=== PATIENT | female | born 1965 | race African-American/Black ===

== ENCOUNTER 2021-04-05 17:08 | Emergency (ER) | payer OTHER ==
[~2021-04-05] VITALS: Ht 157.5 cm; Wt 91.2 kg
--- NOTE | ~2021-04-05 | EMS ---
[address] [address] EMS Patient Care Report Name: JESSICA CASTELLANO Room #: DEP CHANG Baird#: [id number] Admission: 04/05/21 Attend Phys: Discharge: 04/05/21 Date of : 67 Report #: [id number] THIS REPORT FOR: //name// Report Transmitted: 04/06/2021 13:06 EMS Care Summary [place], [place]/[facility] Incident [id number] @ 04/05/2021 16:43 Incident Location [address], [place] [address] Patient JESSICA CASTELLANO Female, 55 Years 1965 Patient Address Patient History Anxiety, Chief Complaint Anxiety Disposition Transported No Lights/Fowler Dispatch Reason Breathing Problem Transported To [facility] Narrative M42 arrived on scene to find the patient sitting upright in a chair. Patient said she was just eating lunch when she felt like she could not feel anything in her body. Patient said then she was not able to breath. Patient was breathing rapidly and we had to cricket coach her to slow her breathing down. Patient friend said this has happened to the patient several times before and she had gone to the hospital but the hospital had not figured out what was going on. Patient denied chest pain, fever, or could. Patient said she has had anxiety attacks in the past. En route to the hospital no changes in the patient condition occurred. M42 arrived on scene of the hospital and patient care was transferred to the RN. [address] [place] [address] EMS Patient Care Report Name: JESSICA CASTELLANO Room #: DEP Oli#: [id number] Admission: 04/05/21 Attend Phys: Discharge: 04/05/21 Date of : 67 Report #: [id number] Initial Vitals @16:54P: 117,R: 18,BP: 146/94,Pain: 0/10,GCS: 15,SpO2: 96,Revised Trauma: 12, @17:09P: 110,R: 16,BP: 147/73,Pain: 0/10,GCS: 15,SpO2: 97,Revised Trauma: 12, Assessments @16:51MENTAL:No Abnormalities,SKIN:No Abnormalities,HEENT:Head/Face: No Abnormalities,Eyes: No Abnormalities,Neck/Airway: No Abnormalities,LUNG SOUNDS:General: No Abnormalities,Left Upper: No Abnormalities,Right Upper: No Abnormalities,Left Lower: No Abnormalities,Right Lower: No Abnormalities,ABDOMEN:General: No Abnormalities,Left Upper: No Abnormalities,Right Upper: No Abnormalities,Left Lower: No Abnormalities,Right Lower: No Abnormalities,PELVIS//GI:No Abnormalities,EXTREMITIES:Left Arm: No Abnormalities,Right Arm: No Abnormalities,Left Leg: No Abnormalities,Right Leg: No Abnormalities,PULSE:NEURO:No Abnormalities,@17:04MENTAL:No Abnormalities,SKIN:No Abnormalities,HEENT:Head/Face: No Abnormalities,Eyes: No Abnormalities,Neck/Airway: No Abnormalities,LUNG SOUNDS:General: No Abnormalities,Left Upper: No Abnormalities,Right Upper: No Abnormalities,Left Lower: No Abnormalities,Right Lower: No Abnormalities,ABDOMEN:General: No Abnormalities,Left Upper: No Abnormalities,Right Upper: No Abnormalities,Left Lower: No Abnormalities,Right Lower: No Abnormalities,PELVIS//GI:No Abnormalities,EXTREMITIES:Left Arm: No Abnormalities,Right Arm: No Abnormalities,Left Leg: No Abnormalities,Right Leg: No Abnormalities,PULSE:NEURO:No Abnormalities, Impression Anxiety reaction/Emotional upset Procedures @16:51ALS AssessmentResponse: UnchangedSucceeded Timeline 16:41,Call Received 16:41,Dispatch Notified 16:43,Dispatched 16:43,En Route 16:50,On Scene 16:51,At Patient 16:51,ALS Assessment,Response: UnchangedSucceeded, 16:54,BP: 146/94 M,PULSE: 117,RR: 18 R,SPO2: 96 Ox,ETCO2: ,BG: ,PAIN: 0,GCS: 15, 16:57,Depart Scene 17:05,At Destination 17:09,BP: 147/73 M,PULSE: 110,RR: 16 R,SPO2: 97 Ox,ETCO2: ,BG: ,PAIN: 0,GCS: 15, 17:20,Call Closed [facility] [address] [place] [address] EMS Patient Care Report Name: JESSICA CASTELLANO Room #: DEP Oli#: [id number] Admission: 04/05/21 Attend Phys: Discharge: 04/05/21 Date of : 67 Report #: [id number] Disclaimer [email or web address] Copyright 2020 [employer] This EMS Care Summary contains data elements from the applicable legal record (which may be displayed differently). It is designed to provide pertinent information for the following purposes: continuity of care, clinical quality, and state data reporting. The complete legal record is available to ED staff and administrators of the receiving hospital in [employer]'s Patient Tracker. All data is provided "as is."
[2021-04-05] MEDS ORDERED: PROTONIX40 M2 PO (17:35)
[2021-04-05] MEDS ORDERED: VITAMIN B-1100 M2 PO (17:36)
[2021-04-05] MEDS ORDERED: LEVO-T50 MCG PO (17:36)
[2021-04-05] MEDS ORDERED: FOLIC ACID1 MG PO (17:36)
[2021-04-05] MEDS ORDERED: NORVASC10 MG PO (18:02)
[2021-04-05] MEDS ORDERED: VOLTAREN ARTHRI20 GM TOP (18:03)
[2021-04-05] MEDS ORDERED: LISINOPRIL20 MG PO (18:04)
[2021-04-05] MEDS ORDERED: NEURONTIN300 MG PO (18:04)
[2021-04-05 19:13] LABS: URINE BLOOD NEGATIVE (Negative); URINE CLARITY CLEAR; URINE COLOR YELLOW; URINE GLUCOSE-RANDOM* NEGATIVE (Negative); URINE KETONES NEGATIVE (Negative); URINE LEUKOCYTES-REFLEX NEGATIVE (Negative); URINE NITRITE-REFLEX NEGATIVE (Negative); URINE PROTEIN (DIPSTICK) TRACE (Negative); URINE SPECIFIC GRAVITY >= 1.030 (1.005-1.035)
[2021-04-05 19:26] LABS: ICTOTEST (BILI CONFIRMATORY) Negative (Negative); URINE BILIRUBIN NEGATIVE (Negative)
[2021-04-05 20:00] VITALS: BP 136/85
== END 2021-04-05 20:00 | disposition home or self-care (01) ==
LOC: ER 17:08
PROVIDERS: Nurse Practitioner
DX: F41.9 Anxiety disorder, unspecified (principal); I10 Essential (primary) hypertension; G62.9 Polyneuropathy, unspecified; E78.00 Pure hypercholesterolemia, unspecified; Z79.891 Long term (current) use of opiate analgesic; Z79.899 Other long term (current) drug therapy

== ENCOUNTER 2021-06-22 20:33 | Emergency (ER) | payer OTHER ==
[~2021-06-22] VITALS: Ht 170.2 cm; Wt 147.4 kg
[~2021-06-22 20:33] MED LIST: FOLIC ACID1 MG PO; LEVO-T50 MCG PO; LISINOPRIL20 MG PO; NEURONTIN300 MG PO; NORVASC10 MG PO; PROTONIX40 M2 PO; VITAMIN B-1100 M2 PO; VOLTAREN ARTHRI20 GM TOP
[2021-06-22 21:36] LABS: BASOPHILS 0.8 % (0.0-2.0); RDW 14.8 % (10.5-14.5); WBC 5.7 thou/uL (4.0-11.0)
[2021-06-22 21:38] LABS: ABSOLUTE NEUTROPHILS 3.7 thou/uL (1.4-8.2); EOSINOPHILS 0.5 % (0.0-3.0); HEMATOCRIT 50.4 % (37.0-47.0); HEMOGLOBIN 17.2 gm/dL (12.0-15.0); LYMPHOCYTES 29.1 % (24.0-44.0); MCH 35.3 pg (26.0-34.0); MCHC 34.2 g/dL (28.0-37.0); MCV 103.3 fL (80.0-100.0); MONOCYTES 5.6 % (1.0-8.0); PLATELET COUNT 187 thou/uL (150-400); RBC 4.88 mil/uL (4.20-5.00)
[2021-06-22 22:06] LABS: ANION GAP 16 mmol/L (7-16); BUN 7 mg/dL (7-18); CALCIUM 8.7 mg/dL (8.5-10.1); CHLORIDE 105 mmol/L (98-107); CO2 21 mmol/L (21-32); CREATININE 0.8 mg/dL (0.6-1.0); GLUCOSE 85 mg/dL (74-106); POTASSIUM 3.4 mmol/L (3.5-5.1); SODIUM 142 mmol/L (136-145)
[2021-06-22 22:09] LABS: URINE BILIRUBIN NEGATIVE (Negative); URINE BLOOD NEGATIVE (Negative); URINE CLARITY CLEAR; URINE COLOR YELLOW; URINE GLUCOSE-RANDOM* NEGATIVE (Negative); URINE KETONES NEGATIVE (Negative); URINE LEUKOCYTES-REFLEX NEGATIVE (Negative); URINE NITRITE-REFLEX NEGATIVE (Negative); URINE PROTEIN (DIPSTICK) NEGATIVE (Negative); URINE SPECIFIC GRAVITY 1.015 (1.005-1.035)
[2021-06-22 22:16] LABS: AMP/METHAMP Negative (Negative); BARBITURATES Negative (Negative); BENZODIAZEPINES Negative (Negative); COCAINE Negative (Negative); METHADONE Negative (Negative); OPIATES Negative (Negative); PCP Negative (Negative)
[2021-06-22 22:16] LABS: ALBUMIN 3.1 g/dL (3.4-5.0); DIRECT BILIRUBIN < 0.1 mg/dL (<0.1-0.2); LIPASE 79 U/L (73-393); SGOT 14 U/L (15-37); SGPT 12 U/L (30-65); TOTAL BILIRUBIN 0.3 mg/dL (0.2-1.0); TOTAL PROTEIN 7.2 g/dL (6.4-8.2)
[2021-06-23 00:10] VITALS: BP 141/93
--- NOTE | 2021-06-23 07:24 | EKG ---
[address] [address] ELECTROCARDIOGRAM REPORT Name: GRAYJESSICA Room #: [facility] CHANG Baird#: [id number] Admission: 06/22/21 Attend Phys: Discharge: 06/23/21 Date of : 67 Report #: [id number] [facility] ED Test Date: 2021-06-22 Test Time: 20:52:06 Pat Name: JESSICA CASTELLANO Department: Room: Gender: F [employer]boat [employer]ic Inboard/Outboard: : 1965 Requested By: Miguel Yost Order Number: [id number] MD: Ihsan Franks Measurements Intervals [place] Rate: 104 P: 39 TX: 144 QRS: 13 QRSD: 45 T: 20 QT: 403 QTc: 531 Interpretive Statements Sinus tachycardia Left atrial enlargement Borderline T wave abnormalities Prolonged QT interval No previous ECG available for comparison Electronically Signed On 06-23-2021 7:24:22 CDT by Ihsan Franks [email or web address] <ELECTRONICALLY SIGNED> By: Ihsan Franks MD, [facility] 06/23/21723 51 51 Ihsan Franks MD, FACC /EPI
== END 2021-06-23 00:10 | disposition home or self-care (01) ==
LOC: ER 20:33
PROVIDERS: Nurse Practitioner
DX: F10.10 Alcohol abuse, uncomplicated (principal); Y90.2 Blood alcohol level of 40-59 mg/100 ml; F41.9 Anxiety disorder, unspecified; I10 Essential (primary) hypertension; E78.00 Pure hypercholesterolemia, unspecified; G62.9 Polyneuropathy, unspecified; Z79.891 Long term (current) use of opiate analgesic; Z79.899 Other long term (current) drug therapy